=== PATIENT | female | born 1930 | race Caucasian/White ===

== ENCOUNTER 2019-01-03 17:40 | Inpatient (IN) | payer MEDICARE, BC ==
[~2019-01-03] VITALS: Ht 152.4 cm; Wt 60.9 kg
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
--- NOTE | 2019-01-03 18:33 | NUR ---
PATIENT IN WHEELCHAIR COMBATIVE WITH STAFF, BITING AND KICKING AT THE DOOR. STAFF UNABLE TO REDIRECT PATIENT. NURSE ADMINISTERED ATIVAN 0.5 MG AND HALDOL [address] SPENCER ORDER IM IN LD. WILL REASSES Q 1 HOUR FOR EFFECTIVENESS.
[2019-01-03 22:10] VITALS: BP 162/65
[2019-01-03] MEDS ORDERED: ATIVAN0.5 MG PO (22:49)
[2019-01-03] MEDS ORDERED: VITAMIN D250000 UNIT PO (22:50)
[2019-01-03] MEDS ORDERED: IMODIUM2 MG PO (22:53)
[2019-01-03] MEDS ORDERED: MIRALAX17 GM PO (22:54)
[2019-01-03] MEDS ORDERED: NORVASC5 MG PO (22:55)
[2019-01-03] MEDS ORDERED: BACTROBAN CREAM15 GM TOPICAL (22:55)
[2019-01-03] MEDS ORDERED: ROBITUSSIN DM 110 ML (22:56)
[2019-01-03] MEDS ORDERED: ZOCOR20 MG PO (22:57)
[2019-01-03] MEDS ORDERED: SYNTHROID50 MCG PO (22:58)
[2019-01-03] MEDS ORDERED: TUMS X-STR300 MG PO (22:59)
[2019-01-03] MEDS ORDERED: ACETAMINOPHEN325 MG PO (23:01)
[2019-01-03] MEDS ORDERED: ABREVA2 GM TOPICAL (23:02)
[2019-01-03] MEDS ORDERED: DONEPEZIL HCL10 MG PO (23:02)
--- NOTE | 2019-01-03 23:54 | NUR ---
RECIEVED IN HALLWAY OUTSIDE OF NURSES STATION. VERY CONFUSED. WANDERING AROUND. CALM AND COOPERATIVE WITH CARE AND ADMISSION ASSESSMENT. NO AGGRESSIVE BEHAVIORS THIS EVENING. REDIRECT AND REORIENT NEEDED. RESTING IN BED WITH EYES CLOSED AT THIS TIME. CONTINUE PLAN OF CARE.
[2019-01-04 07:13] LABS: BASOPHILS 0.2 % (0-2); HEMATOCRIT 36.9 % (36.0-48.0); HEMOGLOBIN 12.4 g/dL (12-16); IMMATURE GRANULOCYTES 0.2 % (0-5); LYMPHOCYTES 27.7 % (15-50); MCH 29.2 pg (26.0-34.0); MCHC 33.6 g/dL (31.0-37.0); MEAN PLATELET VOLUME 9.1 fL (7.4-10.4); MONOCYTES 10.1 % (2-11); NEUTROPHILS 60.8 % (40-80); PLATELET COUNT 238 10x3/uL (130-400); RBC 4.24 10x6/uL (4.00-5.40); RDW 13.5 % (11.5-14.5)
[2019-01-04 07:38] LABS: ALBUMIN 3.3 g/dL (3.4-5.0); ANION GAP 13.8 mmol/L (8-16); BILIRUBIN - TOTAL 0.72 mg/dL (0.2-1.3); CALCIUM 8.8 mg/dL (8.5-10.1); CARBON DIOXIDE 23.9 mmol/L (21.0-32.0); CHOL - HDL RATIO 2.3 ratio (2.3-4.1); CREATININE - SERUM 1.4 mg/dL (0.6-1.3); POTASSIUM - SERUM 3.7 mmol/L (3.5-5.1); PROTEIN - SERUM 7.1 g/dL (6.4-8.2); THYROID STIMULATING HORMONE 5.26 uIU/mL (0.36-3.74)
[2019-01-04 09:00] VITALS: BP 125/79
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
--- NOTE | 2019-01-04 10:48 | NUR ---
Nutrition note: Reviewed chart. Limited information available at this time. Will follow up with full nutrition assessment tomorrow when more information is available RD following
[2019-01-04 20:00] VITALS: BP 127/88
--- NOTE | 2019-01-04 20:52 | NUR ---
RECEIVED IN DAYROOM. WANDERING AROUND. CALM AND COOPERATIVE WITH CARE AND ASSESSMENT. NO AGGRESSIVE BEHAVIORS. REDIRECT AND REORIENT NEEDED. RESTING IN RECLINER WITH EYES OPEN AT THIS TIME. CONTINUE PLAN OF CARE.
[2019-01-05 08:37] VITALS: BP 128/88
[2019-01-05 09:17] LABS: FOLATE (FOLIC ACID) - SERUM 10.9 ng/mL (>3.0)
--- NOTE | 2019-01-05 09:55 | NUR ---
RECEIVED PATIENT IN DINING ROOM FOR B'FAST, ALERT, CALM, COOPERATIVE, CONFUSED. NO ADVERSE BEHAVIORS NOTED. MEDS ADMIN PER ORDERS WITH COMPLETE MED COMPLIANCE NOTED. COOPERATIVE WITH GROUP AND STAFF REQUESTS. CONT POC ORDERED.
--- NOTE | 2019-01-05 10:00 | NUR ---
LE: RECEIVED PATIENT IN DINING ROOM FOR B'FAST, ALERT, CALM, COOPERATIVE. MEDS ADMIN PER ORDERS WITH COMPLETE MED COMPLIANCE NOTED. COOPERATIVE WITH GROUP AND STAFF REQUESTS. CONT POC INCLUDING MEDS AND GROUP THERAPY DIRECTED.
--- NOTE | 2019-01-05 15:03 | PSY ---
PATIENT NAME:JOSEPH YOUNGBLOOD MEDICAL RECORD: [id number] : [birth year] LOCATION:[facility] ADMISSION DATE: 01/03/19 ACCOUNT: [id number] PSYCHIATRIC EVALUATION DATE OF EVALUATION: 01/04/19 IDENTIFYING DATA: The patient is 88 years old and she is admitted to the hospital on a voluntary basis. CHIEF COMPLAINT: Aggression. HISTORY OF PRESENT ILLNESS: The patient lives in the [facility]. She has a known history of dementia. She has been very aggressive there, refusing care and barricading the door of her apartment. She has been throwing things at the staff and apparently she has refused to bathe for over a month. On interview, the patient is not oriented. She denies all of these behaviors angrily and tells me that she has to leave here because she has to be at school tomorrow. She was questioned about this and she does not believe she is a teacher. She thinks she is a student and still in high school. She also says she is , but that her is in the [employer] and he is gone, but cannot tell her where he goes or when he will be back. PAST MEDICAL HISTORY: Significant for hypercholesterolemia and hypertension. The patient also has a history of osteoarthritis. The patient also has a history of hypothyroidism. PAST PSYCHIATRIC HISTORY: Significant for an established diagnosis of dementia, although I do not know who made the diagnosis, when it was made, or even how it was made. ALLERGIES: SULFA AND MACROBID. CURRENT MEDICATIONS: Include Synthroid, Zocor, and Norvasc. SOCIAL HISTORY: The patient is apparently . She does have adult daughters who are involved with her care. She denies a history of drug or alcohol abuse, but her history is certainly unreliable. MENTAL STATUS EXAMINATION: The patient is alert and oriented to person only. Her mood is flat. Her affect is constricted. Thought processes are circumstantial. Memory, concentration, and abstraction abilities are moderately impaired and she denies any intent to harm herself or others as well as psychotic symptoms. ASSETS: Supportive family members. LIABILITIES: Limited insight. DIAGNOSTIC IMPRESSION: AXIS I: Senile dementia of the Alzheimer's type with behavioral disturbances. AXIS II: None. AXIS III: Hypothyroidism, hypercholesterolemia, and hypertension. AXIS IV: Moderate. AXIS V: Global assessment of functioning is 30. PLAN: At this time, the patient is admitted to the hospital secondary to agitated behavior associated with a dementing illness. She will be comprehensively monitored and treated with both mood stabilizing and memory enhancing medications. She will be transitioned to the least restrictive environment that can meet her needs. TRANSINT:[id number] Voice Confirmation ID: [id number] DOCUMENT ID: [id number] CHRISTINA GIRALDO MD at 1503 CC: [id number] DICTATION DATE: 01/04/19 1529 DEVICE TEST ENGINEER: 01/04/19 1625 ADM IN [place] [id number] [place] [address]
[2019-01-05 20:00] VITALS: BP 133/79
--- NOTE | 2019-01-05 20:55 | NUR ---
RECEIVED IN PATIENT ROOM. GETTING READY FOR BED. CALM AND COOPERTIVE WITH CARE AND ASSESSMENT. NO AGGRESSIVE BEHAVIORS. REDIRECT AND REORIENT NEEDED. RESTING IN BED WITH EYES CLOSED AT THIS TIME. CONTINUE PLAN OF CARE.
[2019-01-06 09:26] VITALS: BP 143/82
--- NOTE | 2019-01-06 10:00 | NUR ---
RECEIVED PATIENT IN DINING ROOM FOR B'FAST, ALERT, CALM, COOPERATIVE, NO AGGRESSION NOTED. MEDS ADMIN PER ORDERS WITH COMPLETE MED COMPLIANCE NOTED. COOPERATIVE WITH GROUP THERAPY AND STAFF REQUESTS. CONT POC INCLUDING MEDS AND GROUP THERAPY DIRECTED.
[2019-01-06 14:44] VITALS: Ht 152.4 cm; Wt 60.9 kg
--- NOTE | 2019-01-06 15:53 | PN ---
PATIENT:JOSEPH YOUNGBLOOD MEDICAL RECORD: [id number] LOCATION:[facility] ADMISSION DATE: 01/03/19 PROGRESS NOTE DATE OF SERVICE: 01/05/2019 SUBJECTIVE: The patient's case was discussed with staff. She has no new complaint. OBJECTIVE: The patient is in good behavioral control. She has no active thoughts of harming herself or others. She is tolerating her medicines well. Her TSH is slightly elevated. It is unclear if she has been taking her Synthroid at home at [place], but I do not think she has. In fact, they said she had been refusing medicines for the past month. She is taking them here, so I do not see any reason to increase the dose of her Synthroid today. I am, however, going to start her on Aricept because of her cognitive impairment. Aricept is being used to treat her underlying cognitive impairment. She will be monitored for clinical changes associated with its use. Her long-term prognosis is guarded. TRANSINT:[id number] Voice Confirmation ID: [id number] DOCUMENT ID: [id number] CHRISTINA GIRALDO MD at 1553 CC: [id number] DICTATION DATE: 01/05/19 1556 APRON MAN: 01/05/19 1724 ADM IN [place] [address] [place] [id number]
[2019-01-06 20:03] VITALS: BP 131/75
--- NOTE | 2019-01-06 21:28 | NUR ---
PATIENT HAS A FLAT AFFECT, QUIET, FOLLOWS DIRECTIONS WITH ASSISTANCE, COMPLIANT WITH MEDS. NO ADVERSE REACTION NOTED. WILL FOLLOW POC
--- NOTE | 2019-01-07 11:29 | PN ---
PATIENT:JOSEPH YOUNGBLOOD MEDICAL RECORD: [id number] LOCATION:[facility] ADMISSION DATE: 01/03/19 PROGRESS NOTE DATE OF SERVICE: 01/06/2019 SUBJECTIVE: The patient's case was discussed with staff. She has no new complaint. OBJECTIVE: The patient is not eating very well. She is pretty limited in her insight about her situation. She has not been aggressive. ASSESSMENT: Senile dementia of the Alzheimer's type with behavioral disturbances. PLAN: The patient is going to be put on Megace to assist with appetite stimulation. Her long-term prognosis is guarded. TRANSINT:[id number] Voice Confirmation ID: [id number] DOCUMENT ID: [id number] CHRISTINA GIRALDO MD at 1129 CC: [id number] DICTATION DATE: 01/06/191728 SOFTWARE CONTROLS ENGINEER: 01/06/[address] [facility] [address] [place] [address]
[2019-01-07 11:51] VITALS: BP 157/75
--- NOTE | 2019-01-07 14:48 | NUR ---
B) The patient is awake and alert, she is pleasant, but has poor short term memory and poor insight into her situation. She ambulates independently. I) Provide prescribed meds. R) The patient is compliant with medication and unit milieu. She has not shown any aggression today. P) Continue POC.
[2019-01-07 20:42] VITALS: BP 127/69
--- NOTE | 2019-01-07 21:22 | NUR ---
B) Patient is alert and oriented to self, quiet and keeping to herself, responses to interactions with staff, I) Administered scheduled medications as ordered, monitored for needs R) Mediation compliant, pleasant and cooperative, P) Continue plan of care.
[2019-01-08 07:00] VITALS: BP 139/64
--- NOTE | 2019-01-08 07:30 | NUR ---
PT IS ALERT AND ORIENTED. CALM AND COOPERATIVE WITH ASSESSMENT. REDIRECT AND REORIENT NEEDED. MED COMPLIANT. FALL PRECAUTIONS IN PLACE. WILL CPOC.
[2019-01-08 08:25] VITALS: BP 139/64
--- NOTE | 2019-01-08 12:15 | PN ---
PATIENT:JOSEPH YOUNGBLOOD MEDICAL RECORD: [id number] LOCATION:[facility] ADMISSION DATE: 01/03/19 PROGRESS NOTE DATE OF SERVICE: 01/07/2019 SUBJECTIVE: The patient's case was discussed with staff. She has no new complaint. OBJECTIVE: The patient is in good behavioral control with limited insight about her condition. She is not eating very adequately. I have spoken with her about this again, she says she is going to try to do better. She tells me she just simply does not have an appetite. She has been started on Megace hopefully that will assist her with appetite stimulation. TRANSINT:[id number] Voice Confirmation ID: [id number] DOCUMENT ID: [id number] CHRISTINA GIRALDO MD at 1215 CC: [id number] DICTATION DATE: 01/07/19 1246 ROCK BREAKER: 01/07/19 1338 ADM IN [place] [address] [place] [address]
[2019-01-08 20:56] VITALS: BP 142/80
--- NOTE | 2019-01-09 01:20 | NUR ---
RECEIVED IN DAYROOM. SITTING IN A CHAIR WITH PEERS AT HER SIDE. NO SIGNS OF AGGRESSION. REDIRECT AND REORIENT NEEDED. RESTING IN BED WITH EYES CLOSED AT THIS TIME. CONTINUE PLAN OF CARE
[2019-01-09 07:00] VITALS: BP 99/56
--- NOTE | 2019-01-09 09:56 | NUR ---
Nutrition follow up Pt is on a regular diet with 27% average po intake Started on Megace Will add Ensure RD following
--- NOTE | 2019-01-09 10:00 | NUR ---
AWAKE AND ALERT WITH CONFUSION NOTED. CALM AND COOPERATIVE WITH CARE AND ASSESSMENT. NO AGGRESSION NOTED. MEDICATION COMPLIANT. REDIRECT AND REORIENT NEEDED. WILL CONTINUE POC.
--- NOTE | 2019-01-09 14:32 | PN ---
PATIENT:JOSEPH YOUNGBLOOD MEDICAL RECORD: [id number] LOCATION:[facility] ADMISSION DATE: 01/03/19 PROGRESS NOTE DATE OF SERVICE: 01/08/2019 SUBJECTIVE: The patient's case was discussed with staff. She has no new complaint. OBJECTIVE: The patient is participating in treatment reasonably well. She does have a slightly elevated TSH, but I am not sure if she was taking her medications prior to admission. I have reviewed her other medications and will maintain them. ASSESSMENT: Senile dementia of the Alzheimer's type with behavioral disturbances. PLAN: Current medicines have been reviewed and will be maintained. Supportive and educational interventions were made. TRANSINT:[id number] Voice Confirmation ID: [id number] DOCUMENT ID: [id number] CHRISTINA GIRALDO MD at 1432 CC: [id number] DICTATION DATE: 01/08/19 1252 FINISHER MAP AND CHART: 01/08/19 1437 ADM IN [facility] [address] [place] [address]
[2019-01-09 20:00] VITALS: BP 134/84
--- NOTE | 2019-01-09 20:25 | NUR ---
RECEIVED IN DAYROOM. SITTING QUIETLY IN A CHAIR. CALM AND COOPERATIVE WITH CARE AND ASSESSMENT. NO SIGNS OF AGGRESSION. REDIRECT AND REORIENT NEEDED. SITTING QUIETLY AT THIS TIME. CONTINUE PLAN OF CARE
[2019-01-10 08:30] VITALS: BP 122/79
--- NOTE | 2019-01-10 11:00 | NUR ---
RECEIVED PATIENT IN DAYROOM, ALERT, CALM, COOPERATIVE, PLEASANT. MEDS ADMIN PER MED NURSE WITH COMPLETE COMPLIANCE NOTED. COOPERATIVE WITH GROUP ACTIVITY AND STAFF. NO AGGRESSION NOTED. CONT POC INCLUDING MEDS AND GROUP ACTIVITY DIRECTED.
--- NOTE | 2019-01-10 13:17 | PN ---
PATIENT:JOSEPH YOUNGBLOOD MEDICAL RECORD: [id number] LOCATION:[facility]112 ADMISSION DATE: 01/03/19 PROGRESS NOTE DATE OF SERVICE: 01/09/2019 SUBJECTIVE: The patient's case was discussed with staff. She has no new complaint. OBJECTIVE: The patient is in good behavioral control. She is not eating well. She has very limited insight about her condition. ASSESSMENT: Senile dementia of the Alzheimer's type with behavioral disturbances. PLAN: The patient will be maintained on current medicines. She will be given Megace to assist with appetite stimulation. Her long-term prognosis is guarded. TRANSINT:[id number] Voice Confirmation ID: [id number] DOCUMENT ID: [id number] CHRISTINA GIRALDO MD at 1317 CC: [id number] DICTATION DATE: 01/09/19 1620 DATASTAGE DEVELOPER: 01/09/19 191 ADM IN [facility] [address] [place] [address]
[2019-01-10 20:00] VITALS: BP 110/68
--- NOTE | 2019-01-10 21:09 | NUR ---
RECEIVED IN DAYROOM. SITTING IN A CHAIR WITH PEERS AT HER SIDE. CALM AND COOPERATIVE WITH CARE AND ASSESSMENT. NO SIGNS OF AGGRESSION. REDIRECT AND REORIENT NEEDED. CONTINUES TO SIT QUIETLY. CONTINUE PLAN OF CARE
[2019-01-11 10:19] VITALS: BP 144/83
--- NOTE | 2019-01-11 11:00 | NUR ---
AWAKE AND ALERT WITH CONFUSION NOTED. NO AGGRESSIVE BEHAVIORS NOTED. CALM AND COOPERATOVE WITH CARE AND ASSESSMENT. REDIRECT AND REORIENT NEEDED. WILL CONTINUE PLAN OF CARE.
--- NOTE | 2019-01-11 13:27 | PN ---
PATIENT:JOSEPH YOUNGBLOOD MEDICAL RECORD: [id number] LOCATION:[facility] ADMISSION DATE: 01/03/19 PROGRESS NOTE DATE OF SERVICE: 01/10/2019 SUBJECTIVE: The patient's case was discussed with staff. She has no new complaint. OBJECTIVE: The patient is receiving Megace for appetite stimulation, so far it has not been effective. I have spoken to her about her eating. She says that she is doing the best she can and I have no reason to doubt this. I am concerned about her terminal superintendent. Right now, she is not underweight, but she is eating virtually nothing. She is not going to have a very good outcome if she does not begin eating soon. ASSESSMENT: Senile dementia of the Alzheimer's type with behavioral disturbances. PLAN: Current medicines have been reviewed and will be maintained. Long-term prognosis is guarded. TRANSINT:[id number] Voice Confirmation ID: [id number] DOCUMENT ID: [id number] CHRISTINA GIRALDO MD at 1327 CC: [id number] DICTATION DATE: 01/10/19 1334 OPERATIONS EXAMINER: 01/10/19 1412 ADM IN [facility] [address] [place] [address]
--- NOTE | 2019-01-11 20:58 | NUR ---
PATIENT IS QUIET, STAYS TO HERSELF, FOLLOWS DIRECTIONS, COMPLIANT WITH MEDS, NO ADVERSE REACTION NOTE. WILL FOLLOW POC
[2019-01-11 21:07] VITALS: BP 124/71
--- NOTE | 2019-01-12 14:36 | NUR ---
B) The patient is awake and alert, she is confused and has poor insight into her situation. She ambulates independently. I) Provide prescribed meds. R) The patient is compliant with meds and unit milieu. P) Continue POC.
--- NOTE | 2019-01-12 14:55 | PN ---
PATIENT:JOSEPH YOUNGBLOOD MEDICAL RECORD: [id number] LOCATION:[facility] ADMISSION DATE: 01/03/19 PROGRESS NOTE DATE OF SERVICE: 01/11/2019 SUBJECTIVE: The patient's case was discussed with staff. She has no new complaint. OBJECTIVE: The patient denies intent to harm herself or others. She is tolerating her medicines well. ASSESSMENT: No change in diagnoses. PLAN: Current medicines and therapies have been reviewed. She is eating significantly better. She will be monitored for clinical changes and I anticipate that she can be transitioned out of the hospital soon if this level of improvement continues. TRANSINT:[id number] Voice Confirmation ID: [id number] DOCUMENT ID: [id number] CHRISTINA GIRALDO MD at 1455 CC: [id number] DICTATION DATE: 01/11/19 1334 UNIVERSITY TUTOR: 01/11/19 1357 ADM IN [place] [id number] [place] [address]
[2019-01-12] MEDS ORDERED: SYNTHROID75 MCG PO (15:14)
[2019-01-12] MEDS ORDERED: MEGACE ES625 MG/5 M PO (15:14)
[2019-01-12 20:43] VITALS: BP 120/60
--- NOTE | 2019-01-12 22:16 | NUR ---
PATIENT IS CONFUSED, QUIET, STAYS TO HERSELF, COMPLIANT WITH MEDS, CAN MAKE NEEDS KNOWN, WILL FOLLOW POC
--- NOTE | 2019-01-13 07:33 | NUR ---
B) The patient is awake and alert, she is pleasant. She knows her name. She has not shown aggression today. She ambulates independently. She is calm. I) Provide prescribed meds. R) The patient is compliant with meds and unit milieu. P) Continue POC.
[2019-01-13 09:40] VITALS: BP 167/79
--- NOTE | 2019-01-13 13:30 | NUR ---
The patient is assisted to the [facility]. She is being d/c'd now, all paperwork has been faxed. All belongings are accounted for and sent with the patient. She is now d/c'd off of the floor.
--- NOTE | 2019-01-13 15:38 | PN ---
PATIENT:JOSEPH YOUNGBLOOD MEDICAL RECORD: [id number] LOCATION:[facility] ADMISSION DATE: 01/03/19 PROGRESS NOTE DATE OF SERVICE: 01/12/2019 SUBJECTIVE: The patient's case was discussed with staff. She has no new complaint. OBJECTIVE: The patient is in good behavioral control, but very impaired cognitively. She has almost no insight about her situation. She is very difficult at times to redirect, but has not been inappropriate or agitated in any kind of a way that would pose a risk of danger to others. ASSESSMENT: Senile dementia of the Alzheimer's type with behavioral disturbances. PLAN: I anticipate the patient can be transitioned back to the snf tomorrow. Her long-term prognosis is guarded. Followup will be with her primary care snf physician. TRANSINT:[id number] Voice Confirmation ID: [id number] DOCUMENT ID: [id number] CHRISTINA GIRALDO MD at 1538 CC: [id number] DICTATION DATE: 01/12/[address] LIGHT SERVICER SUPERVISOR: 01/12/19 1539 DIS IN 01/13/19 [facility] [address] [place] [address]
--- NOTE | 2019-01-14 11:54 | PN ---
PATIENT:JOSEPH YOUNGBLOOD MEDICAL RECORD: [id number] LOCATION:[facility] ADMISSION DATE: 01/03/19 PROGRESS NOTE DATE OF SERVICE: 01/13/2019 SUBJECTIVE: The patient's case was discussed with staff. She has no new complaint. OBJECTIVE: The patient is in good behavioral control with limited insight about her condition. She tolerates her medicines well. ASSESSMENT: Senile dementia of the Alzheimer's type with behavioral disturbances. PLAN: The patient will be transitioned back to the assisted living center today. Her long-term prognosis is guarded and followup is to be with her primary care long-term physician. At this time, she does not represent an acute risk or danger to herself or others. TRANSINT:[id number] Voice Confirmation ID: [id number] DOCUMENT ID: [id number] CHRISTINA GIRALDO MD at 1154 CC: [id number] DICTATION DATE: 01/13/19 1624 FRONT OF HOUSE MANAGER: 01/13/19 2256 DIS IN 01/13/19 [place] [id number] [place] [address]
== END 2019-01-13 13:35 | disposition home or self-care (01) | DRG 57 ==
LOC: D.PSYCH 17:40
PROVIDERS: ADMIT Psychiatry & Neurology Psychiatry; ATTEND Psychiatry & Neurology Psychiatry
DX: G30.1 Alzheimer's disease with late onset (principal); F02.81 Dementia in other diseases classified elsewhere, unspecified severity, with behavioral disturbance; I10 Essential (primary) hypertension; E03.9 Hypothyroidism, unspecified; E78.5 Hyperlipidemia, unspecified; K58.9 Irritable bowel syndrome, unspecified; I25.10 Atherosclerotic heart disease of native coronary artery without angina pectoris; Z85.3 Personal history of malignant neoplasm of breast; E55.9 Vitamin D deficiency, unspecified